=== PATIENT | female | born 1970 | race Caucasian/White ===

== ENCOUNTER 2019-01-26 13:56 | Emergency (ER) | payer SELFPAY ==
--- NOTE | 2019-01-26 15:13 | EDM.PDOC ---
ED HPI GENERAL MEDICAL PROBLEM - General Chief Complaint: General Stated Complaint: TOOTH PAIN Time Seen by Provider: 01/26/19 15:00 Source of Information: Reports: Patient History Limitations: Reports: No Limitations - History of Present Illness INITIAL COMMENTS - FREE TEXT/NARRATIVE: 48-year-old presents with concerns of left-sided tooth and neck pain. She reports approximately 1 week ago she developed what she self-diagnosed as a dental abscess at the site of a left lower fractured tooth. She started herself on some penicillin that her father had from a trip to [place]. Since this time she's noticed increased swelling and pain extending down into her neck. She is concerned that her current antibiotic is not working. She has had no fevers. She does have pain with movement of the neck. No trismus. No difficulty breathing. - Related Data Allergies Allergy/AdvReac Type Severity Reaction Status Date / Time morphine Allergy Hives Verified 01/26/19 14:18 Home Meds: Home Meds Amoxicillin/Potassium Clav [Augmentin 875-125 Tablet] 1 each PO BID #10 tablet 01/26/19 [Rx] Penicillin V Potassium 1 tab PO TID 01/26/19 [History] Past Medical History - Past Surgical History HEENT Surgical History: Reports: Tonsillectomy Female Surgical History: Reports: Section Musculoskeletal Surgical History: Reports: Shoulder Surgery Social & Family History - Tobacco Use Smoking Status *Q: Current Every Day Smoker Years of Tobacco use: 24 Packs/Tins Daily: 0.5 ED ROS GENERAL - Review of Systems Review Of Systems: See Below Constitutional: Denies: Fever HEENT: Reports: Dental Pain Respiratory: Reports: No Symptoms Cardiovascular: Reports: No Symptoms Endocrine: Reports: No Symptoms GI/Abdominal: Reports: No Symptoms : Reports: No Symptoms Musculoskeletal: Reports: Neck Pain Skin: Reports: No Symptoms Neurological: Reports: No Symptoms Psychiatric: Reports: No Symptoms Hematologic/Lymphatic: Reports: No Symptoms Immunologic: Reports: No Symptoms ED EXAM, GENERAL - Physical Exam Exam: See Below Exam Limited By: No Limitations General Appearance: Alert, No Apparent Distress Ears: Normal External Exam Nose: Normal Inspection Throat/Mouth: Other (fracture left lower molar) Head: Atraumatic, Normocephalic Neck: Lymphadenopathy (L), Tender Lateral, Other (fullness of the left neck with mild induration) Respiratory/Chest: No Respiratory Distress Cardiovascular: Regular Rate, Rhythm GI/Abdominal: Soft, Non-Tender Back Exam: Normal Inspection Extremities: Normal Inspection Neurological: Alert, Oriented Psychiatric: Normal Affect, Normal Mood Skin Exam: Warm, Dry Course - Vital Signs Last Recorded V/S: Last Vital Signs Temp 36.0 C 01/26/19 14:24 Pulse 91 01/26/19 14:24 Resp 16 01/26/19 14:24 BP 135/88 01/26/19 14:24 Pulse Ox 98 01/26/19 14:24 - Orders/Labs/Meds Orders: Active Orders 24 hr Category Date Time Status Iopamidol [Isovue-300 (61%)] Med 01/26/19 15:30 Active 100 ml IV . DIRECTED Sodium Chloride 0.9% [Normal Saline] 70 ml Med 01/26/19 15:30 Active IV ASDIRECTED Medication Orders Sodium Chloride (Normal Saline) 70 mls @ 0 mls/hr IV ASDIRECTED JENNY Last Admin: 01/26/19 16:12 Dose: 3 mls/hr Iopamidol (Isovue-300 (61%)) 100 ml IV . DIRECTED JENNY Last Admin: 01/26/19 16:12 Dose: 100 ml Labs: Laboratory Tests 01/26/19 01/26/19 01/26/19 Range/Units 15:30 15:30 15:30 WBC 11.8 H (4.5-11.0) K/uL RBC 4.10 (3.30-5.50) M/uL Hgb 12.7 (12.0-15.0) g/dL Hct 39.3 (36.0-48.0) % MCV 96 (80-98) fL MCH 31 (27-31) pg MCHC 32 (32-36) % Plt Count 384 (150-400) K/uL Sodium 137 L (140-148) mmol/L Potassium 3.9 (3.6-5.2) mmol/L Chloride 100 (100-108) mmol/L Carbon Dioxide 27 (21-32) mmol/L Anion Gap 13.9 (5.0-14.0) mmol/L BUN 10 (7-18) mg/dL Creatinine 0.7 (0.6-1.0) mg/dL Est Cr Clr Drug Dosing 92.01 mL/min Estimated GFR (MDRD) > 60 (>60) Glucose 92 (74-106) mg/dL Calcium 9.2 (8.5-10.1) mg/dL HCG, Qual Negative Meds: Medications Generic Name Dose Route Start Last Admin Trade Name Frekimi PRN Reason Stop Dose Admin Sodium Chloride 70 mls @ 0 mls/hr 01/26/19 15:30 01/26/19 16:12 Normal Saline IV 3 mls/hr ASDIRECTED JENNY Administration KVO Iopamidol 100 ml 01/26/19 15:30 01/26/19 16:12 Isovue-300 (61%) IV 100 ml . DIRECTED JENNY Administration Discontinued Medications Generic Name Dose Route Start Last Admin Trade Name Freq PRN Reason Stop Dose Admin Sodium Chloride 10 ml 01/26/19 15:28 01/26/19 16:12 Saline Flush FLUSH 01/26/19 15:29 10 ml ONETIME ONE Administration - Re-Assessments/Exams Free Text/Narrative Re-Assessment/Exam: 48 yo presents with concerns of left sided tooth and neck pain while originated at site of fracture left lower molar. Is having neck swelling and stiffness. I do find her exam concerning for possible deep space neck infection (ie Lemierre's) vs simply lymphadenopathy We are obtaining CT soft tissue neck to look for further evidence of this. 01/26/19 15:33 Free Text/Narrative Re-Assessment/Exam: CT with lymphadenopathy but no abscess Safe for discharge Prescribe course of augmentin and encouraged to get dental follow-up 01/26/19 16:56 Departure - Departure Time of Disposition: 16:57 Disposition: Home, Self-Care 01 Clinical Impression: Lymphadenopathy - Discharge Information Prescriptions: Amoxicillin/Potassium Clav [Augmentin 875-125 Tablet] 1 each PO BID #10 tablet Referrals: PCP,None [Primary Care Provider] - Forms: ED Department Discharge Additional Instructions: There is no evidence of infection in your neck It is important that you obtain follow up with a dentist We would also suggest seeing a primary doctor if the swelling in your neck continues to obtain further work-up - My Orders Last 24 Hours: My Active Orders 01/26/19 15:30 Iopamidol [Isovue-300 (61%)] 100 ml IV . DIRECTED Sodium Chloride 0.9% [Normal Saline] 70 ml IV ASDIRECTED - Assessment/Plan Last 24 Hours: My Active Orders 01/26/19 15:30 Iopamidol [Isovue-300 (61%)] 100 ml IV . DIRECTED Sodium Chloride 0.9% [Normal Saline] 70 ml IV ASDIRECTED
[2019-01-26] MEDS ORDERED: Sodium Chloride 0.9% 10 ML Syringe FLUSH ONE (15:28)
[2019-01-26] MEDS ORDERED: Iopamidol 612 MG/ML 100 ML Bottle IV SCH (15:30)
--- NOTE | 2019-01-26 16:50 | CRLCT ---
INDICATION: Left-sided neck swelling and pain. TECHNIQUE: CT soft tissue of the neck was acquired with 100 cc Isovue-300 IV contrast. COMPARISON: None FINDINGS: Skull base: Unremarkable. Pharynx/Larynx/Trachea: Epiglottis is normal. Airway is patent. Adjacent soft tissues are normal. Salivary glands: Unremarkable. Thyroid gland: Unremarkable. No significant nodules. Lymph nodes: There are multiple mildly enlarged and inflamed left side lymph nodes. No lymphadenopathy elsewhere. Vessels: Unremarkable. No sign of venous thrombus. Bones: Unremarkable for age. Misc: No inflammation, mass or fluid collection. Lung apices: Unremarkable. IMPRESSION: Left side neck lymphadenopathy of uncertain etiology and significance. No sign of abscess or deep soft tissue infection. Dictated by Ra Suresh MD @ 01/26/2019 4:50:10 PM Please note that all CT scans at this facility use dose modulation, iterative reconstruction, and/or weight-based dosing when appropriate to reduce radiation dose to as low as reasonably achievable. Dictated by: Ra Suresh MD @ 01/26/2019 16:50:21 (Electronically Signed)
== END 2019-01-26 17:16 | disposition home or self-care (01) ==
LOC: JP.ED 13:56
DX: R59.0 Localized enlarged lymph nodes (principal); F17.210 Nicotine dependence, cigarettes, uncomplicated; Z88.5 Allergy status to narcotic agent
CPT/HCPCS: 36415; 70491; 80048; 84703; 85027; 99283; J7030; Q9967; 99284-25

== ENCOUNTER 2021-07-04 23:37 | Observation (INO) | payer SELFPAY ==
[2021-07-05] MEDS ORDERED: Ondansetron 4 MG Tab.DIS PO ONE (00:21)
[2021-07-05] MEDS ORDERED: HYDROmorphone 1 MG/ML Syringe IM ONE (00:21)
[2021-07-05] MEDS ORDERED: Ampicillin/Sulbactam Na 1.5 GM in Sodium Chloride 0.9% 50 ML IV ONE (01:09)
[2021-07-05] MEDS ORDERED: Sodium Chloride 0.9% 1,000 ML IV SCH ×2 (01:15→01:30)
[2021-07-05] MEDS ORDERED: Scopolamine 1.5 MG Transdermal Patch TRDERM PRN (01:24)
[2021-07-05] MEDS ORDERED: Promethazine 12.5 MG in Sodium Chloride 0.9% 50 ML IV PRN (01:24)
[2021-07-05] MEDS ORDERED: fentaNYL 100 MCG/2 ML SDV IVPUSH PRN ×3 (01:24→09:52)
[2021-07-05] MEDS ORDERED: Promethazine 25 MG in Sodium Chloride 0.9% 50 ML IV PRN (01:24)
[2021-07-05] MEDS ORDERED: diphenhydrAMINE 50 MG/ML SDV IVPUSH PRN ×2 (01:24)
[2021-07-05] MEDS ORDERED: diphenhydrAMINE 25 MG Cap PO PRN (01:24)
[2021-07-05] MEDS: fentaNYL 100 MCG/2 ML SDV IVPUSH PRN ×5 (01:49→07:50)
[2021-07-05 02:09] LABS: CORONAVIRUS COVID-19 NAA NEGATIVE (NEGATIVE)
[2021-07-05] MEDS: Ondansetron 4 MG/2 ML SDV IVPUSH PRN ×2 (02:33→08:54)
[2021-07-05] MEDS ORDERED: Lidocaine 1% with EPINEPHrine 1:100,000 50 ML MDV ONE (06:56)
[2021-07-05] MEDS ORDERED: Bupivacaine 0.5% 50 ML MDV ONE ×2 (06:56→08:17)
[2021-07-05] MEDS ORDERED: ceFAZolin 2 GM in Premix Bag 1 BAG IV ONE (08:30)
[2021-07-05] MEDS ORDERED: metroNIDAZOLE/Normal Saline 500 MG in Premix Bag 1 BAG IV ONE (08:30)
[2021-07-05] MEDS ORDERED: Rocuronium 50 MG/5 ML Vial ONE (09:08)
[2021-07-05] MEDS ORDERED: fentaNYL 250 MCG/5 ML SDV ONE ×2 (09:08→09:21)
[2021-07-05] MEDS ORDERED: Glycopyrrolate 0.2 MG/ML 5 ML MDV ONE (09:08)
[2021-07-05] MEDS ORDERED: Propofol 200 MG/20 ML SDV ONE (09:08)
[2021-07-05] MEDS ORDERED: Ondansetron 4 MG/2 ML SDV ONE (09:08)
[2021-07-05] MEDS ORDERED: Dexamethasone 4 MG/ML SDV ONE (09:08)
[2021-07-05] MEDS ORDERED: Neostigmine Methylsulfate 1 MG/ML 5 ML Syringe ONE (09:08)
[2021-07-05] MEDS ORDERED: Succinylcholine 200 MG/10 ML MDV ONE (09:09)
[2021-07-05] MEDS ORDERED: Lactated Ringers 1,000 ML ONE (09:17)
[2021-07-05] MEDS ORDERED: Ketorolac 30 MG/ML SDV ONE (09:42)
[2021-07-05] MEDS ORDERED: Acetaminophen/HYDROcodone 325-5 MG Tab PO PRN (09:52)
[2021-07-05] MEDS ORDERED: Zolpidem 5 MG Tab PO PRN (09:52)
[2021-07-05] MEDS ORDERED: hydrOXYzine HCL 100 MG/2 ML SDV IM PRN (09:52)
[2021-07-05] MEDS ORDERED: Ondansetron 4 MG/2 ML SDV IVPUSH PRN (09:52)
[2021-07-05] MEDS ORDERED: Benzocaine/Cetylpyridinium/Menthol Lozenge MUCMEM PRN (09:52)
[2021-07-05] MEDS ORDERED: Docusate Sodium 100 MG Cap PO PRN (09:52)
[2021-07-05] MEDS ORDERED: Scopolamine 1.5 MG Transdermal Patch TOP ONE (10:00)
[2021-07-05] MEDS ORDERED: Scopolamine 1.5 MG Transdermal Patch TOP SCH (10:00)
[2021-07-06] MEDS ORDERED: CHECK SCOPOLAMINE PATCH TOP SCH (09:00)
== END 2021-07-05 14:00 | disposition home or self-care (01) ==
LOC: JP.ED 23:37 → JP.MS 07-05 01:13 → INTOOBSV 07-05 01:13
PROVIDERS: ADMIT Surgery; ATTEND Internal Medicine
DX: K80.12 Calculus of gallbladder with acute and chronic cholecystitis without obstruction (principal); Z88.6 Allergy status to analgesic agent; Z87.891 Personal history of nicotine dependence
CPT/HCPCS: 0241U; 36415; 74176; 76705; 80053; 83690; 85025; 88304; 96365; 96372; 99284; 99285-25; A9270-GY; J0171; J0295; J0330; J0690; J1100; J1170; J1885; J2405; J2550; J2704; J2710; J2795; J3010; J3490; J7030; J7120; Q0162